=== PATIENT | male | born 1980 | race Caucasian/White ===

== ENCOUNTER 2018-01-21 20:08 | Emergency (ER) | payer MEDICAID, SELFPAY ==
[2018-01-21 20:10] VITALS: BP 144/70; PULSE 84; RESP 18; TEMP 36.9; O2SAT 99; BMI 32.7
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
[2018-01-21 21:11] VITALS: PULSE 82; RESP 14; O2SAT 98
== END 2018-01-21 21:11 | disposition home or self-care (01) ==
PROVIDERS: Emergency Provider Emergency Medicine; Family Provider Family Medicine; PCP Family Medicine
DX: S69.82XA Other specified injuries of left wrist, hand and finger(s), initial encounter (principal); Y09 Assault by unspecified means; Y93.89 Activity, other specified; Z72.0 Tobacco use
CPT/HCPCS: 73140; 99282